=== PATIENT | female | born 1980 | race Caucasian/White ===

== ENCOUNTER 2022-11-23 09:08 | Emergency (ER) | payer OTHER ==
[~2022-11-23] VITALS: Ht 162.6 cm; Wt 72.7 kg
[~2022-11-23 09:08] MED LIST: LEVO112T7 PO
[2022-11-23 09:10] VITALS: BP 145/88
[2022-11-23] MEDS ORDERED: SULFACETAMIDE SODIUM 10% 15 ML OPHTHALMIC SOLUTION OS ONE (10:00)
[2022-11-23] MEDS ORDERED: ERYTHROMYCIN 0.5% 3.5 GM TUBE OPHTHALMIC OINTMENT OS ONE (10:15)
== END 2022-11-23 10:56 | disposition home or self-care (01) ==
LOC: EMS 09:12
DX: H00.016 Hordeolum externum left eye, unspecified eyelid (principal); E03.9 Hypothyroidism, unspecified
CPT/HCPCS: 99281; Z7502; Z7610

== ENCOUNTER 2023-12-06 12:17 | Emergency (ER) | payer OTHER ==
[~2023-12-06] VITALS: Ht 165.1 cm; Wt 81.8 kg
[2023-12-06 12:23] VITALS: TEMP 98.4
[2023-12-06 14:50] VITALS: BP 135/85; PULSE 80; RESP 18
[2023-12-06 16:01] LABS: BASOPHILS % (AUTO) 0.5 % (0.0-2.0); EOSINOPHILS % (AUTO) 1.9 % (1.0-6.0); HEMATOCRIT 37.4 % (36-46); HEMOGLOBIN 12.3 g/dL (12.0-16.0); LYMPHOCYTES # (AUTO) 2.8 K/uL (1.0-4.8); MEAN CORPUSCULAR HEMOGLOBIN 30.1 pg (26.0-34.0); MEAN CORPUSCULAR HGB CONC 32.9 G/dL (31.0-37.0); MEAN CORPUSCULAR VOLUME 91 fL (80-100); MONOCYTES # (AUTO) 0.6 K/uL (0.1-1.0); MONOCYTES % (AUTO) 4.4 % (2.0-9.0); NEUTROPHILS # (AUTO) 9.7 K/uL (1.8-7.7); NEUTROPHILS % (AUTO) 72.2 % (40.0-70.0); PLATELET COUNT (AUTO) 344 K/uL (150-450); RED CELL DISTRIBUTION WIDTH 13.9 % (11.5-14.5); WHITE BLOOD COUNT (AUTO) 13.5 K/uL (4.5-11.0)
[2023-12-06 16:28] LABS: ALANINE AMINOTRANSFERASE 32 U/L (12-78); ALBUMIN 3.7 g/dL (3.4-5.0); ALKALINE PHOSPHATASE 90 U/L (46-116); ANION GAP 9 mmol/L (8-16); ASPARTATE AMINOTRANSFERASE 22 U/L (15-37); BILIRUBIN,TOTAL 0.5 mg/dL (0.1-1.0); CALCIUM, TOTAL 8.4 mg/dL (8.8-10.5); CARBON DIOXIDE 26 mmol/L (22-29); CHLORIDE 102 mmol/L (98-107); CREATININE 0.65 mg/dL (0.60-1.30); GLOMERULAR FILTR. RATE CALC > 60 mL/min (>60); GLUCOSE,RANDOM 95 mg/dL (70-110); LIPASE 32 U/L (16-77); SODIUM SERUM 137 mmol/L (136-145); TOTAL PROTEIN, SERUM 7.6 g/dL (6.4-8.2); UREA NITROGEN, BLOOD 13 mg/dL (7-18)
[2023-12-06] MEDS ORDERED: FUROSEMIDE 20 MG TABLET PO ONE (17:00)
[2023-12-06] MEDS ORDERED: HYDR25TA2 PO (17:00)
[2023-12-06 17:18] LABS: APPEARANCE,URINE CLEAR (CLEAR); BILIRUBIN,URINE NEGATIVE (NEGATIVE); COLOR,URINE COLORLESS (YELLOW); GLUCOSE, URINE (UA) NEGATIVE (NEGATIVE); KETONES,URINE NEGATIVE (NEGATIVE); LEUKOCYTE ESTERASE ,URINE NEGATIVE (NEGATIVE); NITRATE,URINE NEGATIVE (NEGATIVE); OCCULT BLOOD,URINE NEGATIVE (NEGATIVE); PH,URINE 6.5 (5.0-8.0); PROTEIN,URINE NEGATIVE (NEGATIVE); SPECIFIC GRAVITIY, URINE 1.013 (1.003-1.030); UROBILINOGEN,URINE <=1.0 mg/dL (<=1.0)
[2023-12-06 17:55] LABS: BACTERIA,URINE None Seen /HPF (None Seen); RBC,URINE None Seen /HPF (0-2); WBC,URINE 0-2 /HPF (0-5)
== END 2023-12-06 17:27 | disposition home or self-care (01) ==
LOC: EMS 16:10
DX: R60.0 Localized edema (principal); R51.9 Headache, unspecified; E03.9 Hypothyroidism, unspecified
CPT/HCPCS: 80053; 81001; 83690; 84703; 85025; 99283

== ENCOUNTER 2024-05-26 07:00 | Emergency (ER) | payer OTHER ==
[~2024-05-26] VITALS: Ht 160 cm; Wt 98.6 kg
[~2024-05-26 07:00] MED LIST changes: +HYDR25TA2 PO
[2024-05-26 07:04] VITALS: BP 138/64; PULSE 75; RESP 16; O2SAT 97
[2024-05-26 07:27] VITALS: TEMP 98.1
[2024-05-26] MEDS: IBUPROFEN 600 MG TABLET PO ONE (08:00)
== END 2024-05-26 08:19 | disposition home or self-care (01) ==
LOC: EMS 07:00
DX: M79.672 Pain in left foot (principal); E03.9 Hypothyroidism, unspecified; Z79.899 Other long term (current) drug therapy
CPT/HCPCS: 99283